=== PATIENT | female | born 1990 | race African-American/Black ===

== ENCOUNTER 2016-08-26 15:01 | Emergency (ER) | payer BC ==
[2016-08-26 15:03] VITALS: BP 127/59; PULSE 71; RESP 12; TEMP 98.1; O2SAT 100
--- NOTE | 2016-08-26 15:06 | PD ---
Physical Exam Date Seen by Provider: Aug 26, 2016 Time Seen by Provider: 15:04 Narrative 25 YOBF C/O B FEET PAIN AND PAIN ON HER L SIDE OF HER BODY. MOVED LAST WEEK. NO RECENT ILLESS VSS. AWAITING BED PLACEMENT MDM Medical Record Reviewed: Yes Supervised Visit with CATARINO: Yes Nba Infante Aug 26, 2016 15:06
[2016-08-26] MEDS ORDERED: ACETAMINOPHEN 325 MG TAB PO ONE (17:30)
[2016-08-26] MEDS ORDERED: DIAZEPAM 5 MG TAB PO ONE (17:30)
--- NOTE | 2016-08-26 18:10 | PD ---
HPI Chief Complaint: Pain: Acute or Chronic Time Seen by Provider: 17:18 Travel History International Travel<30 days: No Contact w/Intl Traveler<30days: No Traveled to known affect area: No History of Present Illness HPI 25yo F with no PMH presents to the ED with multiple complaints. 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 Pt initially was on the dorsum and then now on the plantar surface. Pt also with left sided neck pain that is worst with movement. Denies any trauma, fall. Denies any chest pain, sob, n/v, abdominal pain, focal weakness or numbness. PFSH Past Medical History Thyroid Disease: Yes (PT NOT SURE IF HYPO OR HYPER ) Influenza Vaccination: Yes ?: Not : 0 Social History Alcohol Use: Yes (OCC) Tobacco Use: No Substance Use: Yes (POT OCC ) Allergies-Medications (Allergen,Severity, Reaction): Coded Allergies: No Known Allergies (Unverified , 08/26/16) Reported Meds & Prescriptions Reported Meds & Active Scripts Active No Active Prescriptions or Reported Medications Review of Systems Except as stated in HPI: all other systems reviewed are Neg Physical Exam Narrative GENERAL: 25yo F not in distress. SKIN: Focused skin assessment warm/dry. HEAD: Atraumatic. Normocephalic. NECK: No midline ttp. +TTP left paraspinal muscle. CARDIOVASCULAR: Regular rate and rhythm. No murmur appreciated. RESPIRATORY: No accessory muscle use. Clear to auscultation. Breath sounds equal bilaterally. GASTROINTESTINAL: Abdomen soft, non-tender, nondistended. MUSCULOSKELETAL: Left foot: No ttp lateral or medial malleolus. +TTP plantar fascia. FROM left ankle. No ttp base of fifth metatarsal. DP 2+. Sensation intact. NEUROLOGICAL: Awake and alert. No obvious cranial nerve deficits. Motor grossly within normal limits. Normal speech. PSYCHIATRIC: Appropriate mood and affect; insight and judgment normal. Data Data Last Documented VS Vital Signs Date Time Temp Pulse Resp B/P Pulse Ox O2 Delivery O2 Flow Rate FiO2 08/26/16 15:03 98.1 71 12 127/59 100 Orders Diazepam (Valium) (08/26/16 17:30) Acetaminophen (Tylenol) (08/26/16 17:30) MDM Medical Decision Making Medical Screen Exam Complete: Yes Emergency Medical Condition: Yes Differential Diagnosis Musculoskeletal pain vs. plantar fasciitis vs. muscle spasm Narrative Course 25yo F with left sided pain that appears very musculoskeletal. No trauma. No focal neurologic deficits. Pt is requesting a work note. Valium 5mg PO and acetaminophen 650mg PO. Pt reevaluated at bedside and feels better. Return precautions given. Diagnosis Primary Impression: Musculoskeletal pain Patient Instructions: General Instructions Departure Forms: Tests/Procedures Additional Instructions: Please follow up with your PMD in 3-7 days. Return to the ED if symptoms worsen. Med/Other Pt SpecificInfo: Prescription(s) given Scripts Ibuprofen 600 Mg Tah436 Mg PO Q8HR PRN (PAIN) #20 TAB Ref 0 Prov:Margoth Cedillo DO 08/26/16 Disposition: 01 DISCHARGE HOME Condition: Stable Margoth Cedillo DO Aug 26, 2016 18:10
[2016-08-26] MEDS ORDERED: IBUP-232 PO (18:55)
== END 2016-08-26 19:28 | disposition home or self-care (01) ==
LOC: NEPC 15:01
DX: M79.672 Pain in left foot (principal); M54.2 Cervicalgia; E07.9 Disorder of thyroid, unspecified
CPT/HCPCS: 99283

== ENCOUNTER 2017-01-22 14:53 | Emergency (ER) | payer SELFPAY ==
[~2017-01-22] VITALS: Ht 165.1 cm; Wt 75.0 kg
[~2017-01-22 14:53] MED LIST: IBUP-232 PO
[2017-01-22 14:55] VITALS: BP 129/71; PULSE 71; RESP 17; TEMP 98.9; O2SAT 100
--- NOTE | 2017-01-22 15:04 | PD ---
Physical Exam Time Seen by Provider: 15:03 Narrative 26yo F c/o bilateral tooth pain x 10 years w/ worsening of pain x 1 week. Albaro fever, vomiting. Patient seen in triage. VS reviewed. Awaiting bed placement. Data Data Last Documented VS Vital Signs Date Time Temp Pulse Resp B/P (MAP) Pulse Ox O2 Delivery O2 Flow Rate FiO2 01/22/17 14:55 98.9 71 17 129/71 (90) 100 MDM Supervised Visit with CATARINO: Lizet Mulligan Jan 22, 2017 15:04
[2017-01-22] MEDS ORDERED: MAPA500T13 PO (15:43)
[2017-01-22] MEDS ORDERED: PENI500T PO (15:43)
[2017-01-22] MEDS ORDERED: MAGICADU2 SWISH-SWAL (15:43)
[2017-01-22] MEDS ORDERED: IBUP-232 PO (15:43)
--- NOTE | 2017-01-22 15:48 | PD ---
HPI Chief Complaint: Oral / Dental Pain or Problem Time Seen by Provider: 15:35 Travel History International Travel<30 days: No Contact w/Intl Traveler<30days: No Traveled to known affect area: No History of Present Illness HPI 26-year-old Afro-[place] female coming in with dental pain to the #2 and #14 tooth for the past several days. Patient has had caries to both of these teeth , with increased pain and sensitivity over the past week. Patient denies fever , chills, or difficulty swallowing. Pain is currently an 8 out of 10. She has no known drug allergies. PFSH Past Medical History Thyroid Disease: Yes (PT NOT SURE IF HYPO OR HYPER ) ?: Not : 0 Social History Alcohol Use: Yes (OCC) Tobacco Use: No Substance Use: Yes (POT OCC ) Allergies-Medications (Allergen,Severity, Reaction): Coded Allergies: No Known Allergies (Unverified , 08/26/16) Reported Meds & Prescriptions Reported Meds & Active Scripts Active Mapap Extra Strength (Acetaminophen) 500 Mg Tab 1,000 Mg PO Q4-6H PRN Ibuprofen 600 Mg Tab 600 Mg PO Q6H PRN Penicillin V Potassium 500 Mg Tab 500 Mg PO Q6H 10 Days Magic Mouthwash Adult Liq (Multi-Ingredient Mouthwash/Gargle) 120 Ml Susp 10 Ml SWISH-SWAL Q2HR Each 5mL contains: Nystatin 200,000units, Diphenhydramine 4.25mg, Viscous Lidocaine 10mg, Newton syrup 0.8 mL Ibuprofen 600 Mg Tab 600 Mg PO Q8HR PRN Review of Systems Except as stated in HPI: all other systems reviewed are Neg General / Constitutional: No: Fever Eyes: No: Visual changes HENT: Positive: Dental Difficulties, No: Headaches, Sore Throat, Gingival Bleeding, Ear Discharge, Earache Cardiovascular: No: Chest Pain or Discomfort Respiratory: No: Shortness of Breath Gastrointestinal: No: Abdominal Pain Genitourinary: No: Dysuria Musculoskeletal: No: Pain Skin: No Rash Neurologic: No: Weakness Psychiatric: No: Depression Endocrine: No: Polydipsia Hematologic/Lymphatic: No: Easy Bruising Physical Exam Narrative GENERAL: Patient appears in mild distress. SKIN: Warm and dry. Normal color. Normal turgor. HEAD: Atraumatic. Normocephalic. EYES: Pupils equal and round. No scleral icterus. No injection or drainage. ENT: No nasal bleeding or discharge. Mucous membranes pink and moist. Patient has severe caries to the #2, #1, #14, and #15 teeth. No significant abscess is noted. Pharynx is clear. Airway is patent. TMs are clear bilaterally. NECK: Trachea midline. Supple nontender without significant lymphadenopathy. CARDIOVASCULAR: Regular rate and rhythm. RESPIRATORY: No accessory muscle use. Clear to auscultation. Breath sounds equal bilaterally. MUSCULOSKELETAL: Extremities without clubbing, cyanosis, or edema. No obvious deformities. NEUROLOGICAL: Awake and alert. No obvious cranial nerve deficits. Motor grossly within normal limits. Five out of 5 muscle strength in the arms and legs. Normal speech. PSYCHIATRIC: Appropriate mood and affect; insight and judgment normal. Data Data Last Documented VS Vital Signs Date Time Temp Pulse Resp B/P (MAP) Pulse Ox O2 Delivery O2 Flow Rate FiO2 01/22/17 14:55 98.9 71 17 129/71 (90) 100 MDM Medical Decision Making Medical Screen Exam Complete: Yes Emergency Medical Condition: Yes Differential Diagnosis Dental caries. Dental abscess. Dental pain. Narrative Course Patient is treated with ibuprofen 600 mg 4 times a day. #40. Patient is treated with acetaminophen 500 mg 2 tabs every 6 hours when necessary #60. Patient is given Magic mouthwash as directed every 2 hours. 120 mL's with 2 refills. Patient is given Pen-Vee K 500 mg 4 times a day 10 days. Patient is to follow-up with a dentist as discussed. Diagnosis Primary Impression: Dental abscess Referrals: Dentist Patient Instructions: General Instructions Additional Instructions: Patient is treated with ibuprofen 600 mg 4 times a day. #40. Patient is treated with acetaminophen 500 mg 2 tabs every 6 hours when necessary #60. Patient is given Magic mouthwash as directed every 2 hours. 120 mL's with 2 refills. Patient is given Pen-Vee K 500 mg 4 times a day 10 days. Patient is to follow-up with a dentist as discussed. Scripts Acetaminophen (Mapap Extra Strength) 500 Mg Tab 1000 MG PO Q4-6H Y for PAIN, #60 TAB 0 Refills Prov: Martha Estes MD 01/22/17 Ibuprofen (Ibuprofen) 600 Mg Tab 600 MG PO Q6H Y for Pain/Inflammation, #40 TAB 0 Refills Prov: Martha Estes MD 01/22/17 Penicillin V Potassium (Penicillin V Potassium) 500 Mg Tab 500 MG PO Q6H for Infection for 10 Days, TAB 0 Refills Prov: Martha Estes MD 01/22/17 Tfsdlhfy-Jlollrlotlgepjd-Gudvbemft Liq (Magic Mouthwash Adult Liq) 120 Ml Susp 10 ML SWISH-SWAL Q2HR for Mouth sores, #120 ML 2 Refills Each 5mL contains: Nystatin 200,000units, Diphenhydramine 4.25mg, Viscous Lidocaine 10mg, Newton syrup 0.8 mL Prov: Martha Estes MD 01/22/17 Disposition: 01 DISCHARGE HOME Condition: Stable Matias Mays Jan 22, 2017 15:48
== END 2017-01-22 16:32 | disposition home or self-care (01) ==
LOC: NEPK 14:53
DX: K04.7 Periapical abscess without sinus (principal); K02.9 Dental caries, unspecified
CPT/HCPCS: 99283